=== PATIENT | female | born 1980 | race Caucasian/White ===

== ENCOUNTER → 2020-02-14 | Outpatient (CLI) | payer OTHER ==
[2005-03-28 04:09] VITALS: PULSE 100; TEMP 97
== END ==
LOC: MC.RAD 09:00
DX: Z12.31 Encounter for screening mammogram for malignant neoplasm of breast (principal)

== ENCOUNTER → 2021-04-23 | Outpatient (CLI) | payer OTHER ==
[2005-03-28 04:09] VITALS: PULSE 100; TEMP 97
== END ==
LOC: MC.RAD 08:30
DX: Z12.31 Encounter for screening mammogram for malignant neoplasm of breast (principal)

== ENCOUNTER 2024-03-05 08:08 | Emergency (ER) | payer SELFPAY ==
[~2024-03-05] VITALS: Ht 175.3 cm; Wt 79.5 kg
[2024-03-05 08:15] VITALS: TEMP 98.2
[2024-03-05 10:00] VITALS: BP 100/68; PULSE 85
== END 2024-03-05 10:02 | disposition home or self-care (01) ==
LOC: COL.ER 08:08
DX: S92.351A Displaced fracture of fifth metatarsal bone, right foot, initial encounter for closed fracture (principal); X50.1XXA Overexertion from prolonged static or awkward postures, initial encounter; Y93.01 Activity, walking, marching and hiking; Y92.480 Sidewalk as the place of occurrence of the external cause
CPT/HCPCS: 31865; L4386